=== PATIENT | female | born 1945 | race Caucasian/White ===

== ENCOUNTER 2025-07-07 12:59 | Outpatient (CLI) | payer MEDICARE, BC ==
--- NOTE | 2025-07-07 14:27 | RADIOLOGY REPORT ---
EXAM: MR MRI HEAD CLINICAL HISTORY: HEADACHE COMPARISON: None TECHNIQUE: Multiplanar, multisequence magnetic resonance imaging of the brain was performed without administration of intravenous contrast. FINDINGS: Moderate diffuse brain atrophy. Mild chronic small-vessel ischemic changes. No hemorrhages, masses, mass effect, midline shift, herniation or cytotoxic edema following large vascular territory. No intra-axial or extra-axial fluid collections. No evidence of hydrocephalus. The basal cisterns are patent. The vascular flow voids are maintained. The pituitary gland, sella and parasellar regions are unremarkable. The cerebellar tonsils are normal position. The cerebellum is unremarkable. Bilateral lens replacement. Otherwise, orbits and globes are unremarkable. Minimal mucoperiosteal thickening of the ethmoid air cells. The remainder of the paranasal sinuses and mastoids are clear. There are No worrisome calvarial lesions. 5 mm suggested hemangioma over the left high parietal calvarium. IMPRESSION: No evidence of acute intracranial abnormalities.
== END 2025-07-07 23:59 | disposition home or self-care (01) ==
LOC: MRI02 12:59
PROVIDERS: ATTEND Family Medicine
DX: I67.82 Cerebral ischemia (principal); R51.9 Headache, unspecified; R05.9 Cough, unspecified; G31.9 Degenerative disease of nervous system, unspecified
CPT/HCPCS: 70551

== ENCOUNTER 2025-07-07 14:51 | Outpatient (CLI) | payer MEDICARE, BC ==
--- NOTE | 2025-07-07 15:34 | RADIOLOGY REPORT ---
DI CHEST,TWO VIEWS CLINICAL HISTORY: COUGH COMPARISON: None TECHNIQUE: Frontal and lateral view of the chest was obtained FINDINGS: Lines and Tubes: None Lungs: No focal consolidation. Pleura: No effusion. No pneumothorax. Cardiomediastinal contours: Unremarkable Bones: No acute osseous abnormality. IMPRESSION: 1. No acute cardiopulmonary disease.
--- NOTE | 2025-07-08 03:31 | RADIOLOGY REPORT ---
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 Degenerative change of the trapeziometacarpal joint includes joint space narrowing, marginal osteophytosis and subchondral sclerosis. Soft tissues are unremarkable.
== END 2025-07-07 23:59 | disposition home or self-care (01) ==
LOC: RAD 14:51
PROVIDERS: ATTEND Family Medicine
DX: M18.0 Bilateral primary osteoarthritis of first carpometacarpal joints (principal); R05.9 Cough, unspecified; R51.9 Headache, unspecified
CPT/HCPCS: 70551; 71046; 73110